=== PATIENT | female | born 1985 | race Caucasian/White ===

== ENCOUNTER 2022-03-11 14:43 | Emergency (ER) | payer OTHER ==
[~2022-03-11] VITALS: Ht 162.6 cm; Wt 90.7 kg
[2022-03-11 14:54] VITALS: BP 119/73
[2022-03-11] MEDS ORDERED: IBUPROFEN 600 MG TAB PO ONE (16:25)
[2022-03-11] MEDS ORDERED: METOCLOPRAMIDE 10 MG TAB PO ONE (16:25)
[2022-03-11] MEDS ORDERED: IBUP-2213 PO (16:26)
[2022-03-11] MEDS ORDERED: METO-486 PO (16:26)
[2022-03-11 16:43] VITALS: BP 119/73
--- NOTE | 2022-03-11 16:47 | NUR ---
Patient discharged with v/s stable. Written and verbal after care instructions given FOR TENSION HEADACHE and explained. Patient alert, oriented and verbalized understanding of instructions. Ambulatory with steady gait. All questions addressed prior to discharge. ID band removed. Patient advised to follow up with PMD. Rx of IBUPROFEN AND REGLAN given. Patient educated on indication of medication including possible reaction and side effects. Opportunity to ask questions provided and answered.
== END 2022-03-11 16:43 | disposition home or self-care (01) ==
LOC: MED 14:43
DX: R51.9 Headache, unspecified (principal); R53.83 Other fatigue; R11.0 Nausea; Z79.899 Other long term (current) drug therapy
CPT/HCPCS: 99283; J8597